=== PATIENT | female | born 1965 | race Caucasian/White ===

== ENCOUNTER 2016-11-11 10:12 | Emergency (ER) | payer OTHER | END 2016-11-11 12:52 | disposition home or self-care (01) | LOC: ED 10:12 | DX: K62.5 Hemorrhage of anus and rectum (principal); E03.9 Hypothyroidism, unspecified; K58.9 Irritable bowel syndrome, unspecified; F41.9 Anxiety disorder, unspecified; F32.9 Major depressive disorder, single episode, unspecified; Z79.899 Other long term (current) drug therapy; Z88.2 Allergy status to sulfonamides ==